=== PATIENT | female | born 1995 | race African-American/Black ===

== ENCOUNTER 2018-11-04 21:25 | Emergency (ER) | payer MEDICAID ==
[~2018-11-04] VITALS: Ht 170.2 cm; Wt 82.0 kg
[~2018-11-04 21:25] MED LIST: BENZ1TAB7 PO; DOCU-138 PO; LEVO500T2 PO; LORA-250 PO; OMEP20CA4 PO; POLY17PO3 PO; QUET200T PO; TEMA15CA5 PO
[2018-11-04 23:39] LABS: BASOPHILS % 0.5 % (0.0-2.0); EOSINOPHILS % 1.4 % (0.0-5.0); HEMATOCRIT. 36.9 % (36.0-48.0); HEMOGLOBIN. 12.4 g/dL (12.0-16.0); LYMPHOCYTES % 34.8 % (20.0-50.0); MEAN CORPUSCULAR HEMOGLOBIN 31.5 pg (28.0-32.0); MEAN CORPUSCULAR VOLUME 93.7 fL (81.0-99.0); MEAN PLATELET VOLUME 8.3 fl (7.4-10.4); MONOCYTES % 14.9 % (2.0-8.0); NEUTROPHILS % 48.4 % (40.0-76.0); PLATELET 169 x1000/uL (130-400); RED BLOOD CELL COUNT 3.94 mill/uL (4.2-5.4); RED CELL DISTRIBUTION WIDTH 13.6 % (11.6-14.6)
[2018-11-04 23:46] LABS: CHLORIDE 107 mEq/L (98-107)
[2018-11-04 23:51] LABS: ETHANOL BLOOD < 10 mg/dL
[2018-11-04 23:53] LABS: HCG SCREEN NEGATIVE
[2018-11-05] MEDS ORDERED: LORAZEPAM 2MG/ML CPJ IM ONE (01:00)
[2018-11-05] MEDS ORDERED: DIPHENHYDRAMINE 50MG/ML VIAL IM ONE (01:00)
[2018-11-05] MEDS ORDERED: HALOPERIDOL LACTATE 5MG/ML VIAL IM ONE (01:00)
[2018-11-05 01:07] LABS: CLARITY URINE CLEAR (CLEAR); COLOR URINE YELLOW (YELLOW); KETONES URINE TRACE (NEGATIVE); LEUKOCYTE ESTERASE URINE 2+ (NEGATIVE); NITRITE URINE NEGATIVE (NEGATIVE); OCCULT BLOOD URINE NEGATIVE (NEGATIVE); PH URINE 6.5 (4.5-8.0); PROTEIN URINE NEGATIVE (NEGATIVE); SPECIFIC GRAVITY URINE 1.023 (1.005-1.030); UROBILINOGEN URINE 0.2 E.U./dL (0.2-1.0)
[2018-11-05 01:34] LABS: *AMPHETAMINES SCREEN URINE NEGATIVE (NEGATIVE); *BARBITURATES SCREEN URINE NEGATIVE (NEGATIVE); *BENZODIAZEPINES SCREEN URINE PRESUMTIVE POSITIVE (NEGATIVE)
[2018-11-05 01:35] LABS: *COCAINE SCREEN URINE NEGATIVE (NEGATIVE); CANNABINOID URINE SCREEN NEGATIVE (NEGATIVE); METHADONE URINE SCREEN NEGATIVE (NEGATIVE); OPIATES URINE SCREEN NEGATIVE (NEGATIVE); PHENCYCLIDINE URINE SCREEN NEGATIVE (NEGATIVE)
[2018-11-05] MEDS ORDERED: DIVALPROEX SODIUM 500MG ER TABLET PO ONE (10:00)
[2018-11-05] MEDS ORDERED: CHLORPROMAZINE HCL 25 MG TABLET PO ONE ×2 (10:00→21:15)
[2018-11-05] MEDS ORDERED: LORAZEPAM 2MG/ML CPJ IM STA (11:19)
[2018-11-05] MEDS ORDERED: OLANZAPINE 10 MG/VIAL IM ONE (11:30)
[2018-11-05] MEDS ORDERED: LORAZEPAM 1MG TABLET PO ONE (19:45)
[2018-11-05] MEDS: NITROFURANTOIN 100MG M/M CAPSULE PO SCH (21:00)
[2018-11-05] MEDS: DIVALPROEX SODIUM 500MG ER TABLET PO SCH (21:15)
[2018-11-06] MEDS: NITROFURANTOIN 100MG M/M CAPSULE PO SCH ×3 (08:24→22:16)
[2018-11-06] MEDS: DIVALPROEX SODIUM 500MG ER TABLET PO SCH ×2 (08:24→22:11)
[2018-11-06] MEDS ORDERED: LORAZEPAM 1MG TABLET PO ONE (17:30)
[2018-11-07] MEDS ORDERED: LORAZEPAM 1MG TABLET PO ONE (08:45)
[2018-11-07] MEDS ORDERED: DIPHENHYDRAMINE 25MG CAPSULE PO ONE (10:00)
[2018-11-07] MEDS ORDERED: LORAZEPAM 2MG/ML CPJ IM ONE (11:00)
[2018-11-07] MEDS ORDERED: HALOPERIDOL LACTATE 5MG/ML VIAL IM ONE (11:00)
[2018-11-07] MEDS ORDERED: DIPHENHYDRAMINE 50MG/ML VIAL IM ONE (11:00)
[2018-11-07] MEDS ORDERED: DIVALPROEX SODIUM 500MG ER TABLET PO ONE (14:00)
[2018-11-07 14:10] VITALS: BP 109/74
[2018-11-12] MEDS ORDERED: LOXA25CA MT (16:16)
[2018-11-12] MEDS ORDERED: TH200 MT (16:39)
[2018-11-12] MEDS ORDERED: DIVA-18 MT (16:41)
== END 2018-11-07 14:44 | disposition home or self-care (01) ==
LOC: ER 21:25
DX: R45.6 Violent behavior (principal); F84.0 Autistic disorder; Z79.899 Other long term (current) drug therapy
CPT/HCPCS: 36415; 80053; 80305; 80307; 80320; 80329; 81003; 82962; 84443; 84703; 85025; 96372; 99284; J1200; J1630; J2060; J3490; Q0161; Q0163; G0480

== ENCOUNTER 2023-04-28 20:27 | Emergency (ER) | payer MEDICAID, OTHER ==
[~2023-04-28] VITALS: Ht 157.5 cm; Wt 97.0 kg
[~2023-04-28 20:27] MED LIST changes: -BENZ1TAB7 PO; +DIVA-18 MT; +LOXA25CA MT; -QUET200T PO; -TEMA15CA5 PO; +TH200 MT
[2023-04-28 20:46] VITALS: BP 110/70; PULSE 116; RESP 12; O2SAT 95
[2023-04-28] MEDS: OLANZAPINE 10 MG/VIAL IM STA (21:03)
[2023-04-28] MEDS: HALOPERIDOL LACTATE 5MG/ML VIAL IM ONE (22:15)
[2023-04-28] MEDS: LORAZEPAM 2MG/ML INJ IM ONE (22:26)
== END 2023-04-29 01:33 | disposition left against medical advice (07) ==
LOC: ER 20:27
DX: F23 Brief psychotic disorder (principal); F84.0 Autistic disorder
CPT/HCPCS: 96372; 99283; J3490; J1630; J2060; Z7610 ×2

== ENCOUNTER 2024-01-16 01:59 | Emergency (ER) | payer MEDICAID ==
[~2024-01-16] VITALS: Ht 170.2 cm; Wt 127.0 kg
[2024-01-16 01:04] VITALS: O2SAT 100
[2024-01-16 06:33] VITALS: BP 110/60; PULSE 99; RESP 18; TEMP 36.66960; O2SAT 100
== END 2024-01-16 06:45 | disposition home or self-care (01) ==
LOC: ER 06:45
DX: F84.0 Autistic disorder (principal); F20.9 Schizophrenia, unspecified; Z79.899 Other long term (current) drug therapy
CPT/HCPCS: 99284; Z7610 ×2

== ENCOUNTER 2024-01-30 00:23 | Emergency (ER) | payer MEDICAID ==
[2024-01-29] MEDS: LACOSAMIDE 100MG/10ML ORAL SOLN GT SCH (21:45)
[~2024-01-30] VITALS: Ht 167.6 cm; Wt 106.0 kg
[2024-01-30 00:58] VITALS: O2SAT 98
[2024-01-30 01:23] LABS: BASOPHILS % 0.5 % (0.0-2.0); EOSINOPHILS % 1.5 % (0.0-5.0); HEMATOCRIT. 43.1 % (36.0-48.0); HEMOGLOBIN. 14.1 g/dL (12.0-16.0); LYMPHOCYTES % 24.1 % (20.0-50.0); MEAN CORPUSCULAR HEMOGLOBIN 30.1 pg (28.0-32.0); MEAN CORPUSCULAR HGB CONC 32.8 g/dL (31.0-37.0); MEAN CORPUSCULAR VOLUME 91.7 fL (81.0-99.0); MEAN PLATELET VOLUME 8.6 fl (7.4-10.4); MONOCYTES % 9.3 % (2.0-8.0); NEUTROPHILS % 64.6 % (40.0-76.0); PLATELET 282 x1000/uL (130-400); RED CELL DISTRIBUTION WIDTH 14.8 % (11.6-14.6); WHITE BLOOD COUNT 12.6 x1000/uL (4.5-11.0)
[2024-01-30 01:29] LABS: CHLORIDE 105 mEq/L (98-107); POTASSIUM 4.2 mEq/L (3.5-5.1); SODIUM 139 mEq/L (136-145)
[2024-01-30 01:30] LABS: CALCIUM 9.7 mg/dL (8.7-10.4); CARBON DIOXIDE 25 mEq/L (21-32)
[2024-01-30 01:35] LABS: CREATININE 0.7 mg/dL (0.6-1.0); GLUCOSE 102 mg/dL (70-105); UREA NITROGEN BLOOD 5 mg/dL (9-23)
[2024-01-30] MEDS: DIPHENHYDRAMINE 50MG/ML VIAL IM STA (01:35)
[2024-01-30] MEDS: LORAZEPAM 2MG/ML INJ IV STA (01:35)
[2024-01-30] MEDS: HALOPERIDOL LACTATE 5MG/ML VIAL IM STA (01:35)
[2024-01-30 01:37] LABS: ACETAMINOPHEN < 2 ug/mL (10-30)
[2024-01-30 01:51] LABS: ETHANOL BLOOD < 10 mg/dL (<10)
[2024-01-30] MEDS: PANTOPRAZOLE 40MG DR TABLET PO ONE (13:23)
[2024-01-30] MEDS: LEVOTHYROXINE SODIUM 75MCG TABLET PO NR (13:23)
[2024-01-30] MEDS: DIVALPROEX SODIUM 500MG DR TABLET PO NR (13:23)
[2024-01-30] MEDS: LACOSAMIDE 100MG/10ML ORAL SOLN GT NR (13:24)
[2024-01-30] MEDS: DIVALPROEX SODIUM 500MG DR TABLET PO ONE (13:35)
[2024-01-30] MEDS: LEVOTHYROXINE SODIUM 75MCG TABLET PO ONE (13:35)
[2024-01-30] MEDS: LACOSAMIDE 100MG/10ML ORAL SOLN GT ONE (13:35)
[2024-01-30] MEDS: HALOPERIDOL LACTATE 5MG/ML VIAL IM ONE (17:11)
[2024-01-30] MEDS: LORAZEPAM 1MG TABLET PO ONE (17:11)
[2024-01-31] MEDS: ZIPRASIDONE MESYLATE 20MG/VIAL IM ONE (01:15)
[2024-01-31] MEDS: LORAZEPAM 2MG/ML INJ IM ONE (03:45)
[2024-01-31] MEDS: OLANZAPINE 10 MG/VIAL IM ONE (05:11)
[2024-01-31] MEDS: CHLORPROMAZINE HCL 25 MG TABLET PO ONE (08:59)
[2024-01-31 13:38] VITALS: BP 136/88; PULSE 90; RESP 22; TEMP 36.89184; O2SAT 99
== END 2024-01-31 13:40 | disposition home or self-care (01) ==
LOC: ER 00:23
DX: F84.0 Autistic disorder (principal); G40.909 Epilepsy, unspecified, not intractable, without status epilepticus; Z79.899 Other long term (current) drug therapy
CPT/HCPCS: 80048; 80307; 80329; 80320; 85025; 36415; 80339 ×2; 96372 ×2; 96374; 99285; J1200; J1630; J2060 ×2; Z7610 ×4; Q0161; J3490; J3486; G0480

== ENCOUNTER 2024-07-09 02:37 | Emergency (ER) | payer MEDICAID ==
[~2024-07-09] VITALS: Ht 160 cm; Wt 91.0 kg
[2024-07-09 02:49] VITALS: O2SAT 98
[2024-07-09 03:12] VITALS: BP 141/79; PULSE 79; RESP 20; TEMP 36.4; O2SAT 99
== END 2024-07-09 03:16 | disposition home or self-care (01) ==
LOC: ER 02:37
DX: R03.0 Elevated blood-pressure reading, without diagnosis of hypertension (principal); F84.0 Autistic disorder; Z79.899 Other long term (current) drug therapy
CPT/HCPCS: 99283

== ENCOUNTER 2024-09-09 21:24 | Emergency (ER) | payer MEDICAID ==
[~2024-09-09] VITALS: Ht 167.6 cm; Wt 77.0 kg
[2024-09-10] MEDS: OLANZAPINE 10 MG/VIAL IM ONE (00:25)
[2024-09-10] MEDS ORDERED: LORAZEPAM 2MG/ML INJ IM ONE (01:30)
[2024-09-10] MEDS: HALOPERIDOL LACTATE 5MG/ML VIAL IM ONE (01:44)
[2024-09-10] MEDS: DIPHENHYDRAMINE 50MG/ML VIAL IM ONE (01:44)
[2024-09-10] MEDS: LORAZEPAM 2MG/ML UD SYRINGE IM SCH (01:45)
[2024-09-10 03:30] VITALS: O2SAT 100
[2024-09-10] MEDS: KETAMINE HCL 50 MG/ML 10ML IM ONE (04:37)
[2024-09-10 05:03] VITALS: TEMP 36.9
[2024-09-10] MEDS ORDERED: DIPHENHYDRAMINE 50MG/ML VIAL IM PRN (10:00)
[2024-09-10] MEDS: CHLORPROMAZINE HCL 25MG/1ML INJ IM PRN (11:51)
[2024-09-10 14:11] VITALS: BP 116/90; PULSE 89; RESP 18; O2SAT 98
== END 2024-09-10 14:48 | disposition home or self-care (01) ==
LOC: EDBD 21:57 → ER 21:57
DX: R45.1 Restlessness and agitation (principal); F84.0 Autistic disorder; Z79.899 Other long term (current) drug therapy
CPT/HCPCS: 99291; 96372; J3490 ×2; J3230; J1200; J1630; J2060

== ENCOUNTER 2024-10-22 08:34 | Emergency (ER) | payer MEDICAID ==
[~2024-10-22] VITALS: Ht 165.1 cm; Wt 70.0 kg
[2024-10-22] MEDS: LORAZEPAM 2MG/ML UD SYRINGE IM NR (10:34)
[2024-10-22] MEDS: HALOPERIDOL LACTATE 5MG/ML VIAL IM ONE ×2 (10:34→17:09)
[2024-10-22] MEDS: DIPHENHYDRAMINE 50MG/ML VIAL IM ONE ×2 (10:34→17:10)
[2024-10-22 12:40] LABS: BASOPHILS % 0.5 % (0.0-2.0); EOSINOPHILS % 0.9 % (0.0-5.0); HEMATOCRIT. 38.3 % (36.0-48.0); HEMOGLOBIN. 12.9 g/dL (12.0-16.0); LYMPHOCYTES % 25.2 % (20.0-50.0); MEAN PLATELET VOLUME 9.2 fl (7.4-10.4); MONOCYTES % 7.7 % (2.0-8.0); NEUTROPHILS % 65.7 % (40.0-76.0); PLATELET 203 x1000/uL (130-400); RED BLOOD CELL COUNT 4.12 mill/uL (4.2-5.4); RED CELL DISTRIBUTION WIDTH 13.7 % (11.6-14.6)
[2024-10-22 12:48] LABS: CREATININE 0.8 mg/dL (0.6-1.0); UREA NITROGEN BLOOD 13 mg/dL (9-23)
[2024-10-22 12:49] LABS: ETHANOL BLOOD < 10 mg/dL (<10)
[2024-10-22 17:10] VITALS: O2SAT 98
[2024-10-22] MEDS: MIDAZOLAM HCL 2 MG/2 ML VIAL IM ONE (17:10)
[2024-10-22] MEDS: OLANZAPINE 10 MG/VIAL IM ONE (20:46)
[2024-10-23] MEDS: ZIPRASIDONE MESYLATE 20MG/VIAL IM ONE (02:30)
[2024-10-23 06:00] VITALS: BP 98/55; PULSE 72; RESP 16; TEMP 36.7; O2SAT 99
== END 2024-10-23 09:37 | disposition home or self-care (01) ==
LOC: ER 08:34
DX: F23 Brief psychotic disorder (principal); F84.0 Autistic disorder; R56.9 Unspecified convulsions; Z79.899 Other long term (current) drug therapy
CPT/HCPCS: 80048; 80307; 80329; 80320; 85025; 36415; 96372 ×2; 99285; J3490; J1200; J1630; J2060; J2250; Z7610 ×4; J3486; G0480

== ENCOUNTER 2024-11-09 20:59 | Emergency (ER) | payer MEDICAID ==
[~2024-11-09] VITALS: Ht 157.5 cm; Wt 80.0 kg
[2024-11-09] MEDS ORDERED: MIDAZOLAM HCL 5 MG/ML VIAL IM ONE (21:45)
[2024-11-09] MEDS: DIPHENHYDRAMINE 50MG/ML VIAL IM ONE (22:01)
[2024-11-09] MEDS: LORAZEPAM 2MG/ML UD SYRINGE IM SCH (22:01)
[2024-11-09] MEDS: HALOPERIDOL LACTATE 5MG/ML VIAL IM ONE (22:01)
[2024-11-09] MEDS ORDERED: MIDAZOLAM HCL 2 MG/2 ML VIAL IM ONE (22:15)
[2024-11-09] MEDS: OLANZAPINE 10 MG/VIAL IM ONE (22:47)
[2024-11-09] MEDS: MIDAZOLAM HCL 2 MG/2 ML VIAL IM ONE (22:51)
[2024-11-09 23:42] LABS: BASOPHILS % 0.6 % (0.0-2.0); EOSINOPHILS % 1.1 % (0.0-5.0); HEMATOCRIT. 37.8 % (36.0-48.0); HEMOGLOBIN. 12.5 g/dL (12.0-16.0); LYMPHOCYTES % 23.9 % (20.0-50.0); MEAN PLATELET VOLUME 9.6 fl (7.4-10.4); MONOCYTES % 7.8 % (2.0-8.0); NEUTROPHILS % 66.6 % (40.0-76.0); PLATELET 187 x1000/uL (130-400); RED BLOOD CELL COUNT 4.03 mill/uL (4.2-5.4); RED CELL DISTRIBUTION WIDTH 14.2 % (11.6-14.6)
[2024-11-09] MEDS: MIDAZOLAM HCL 2 MG/2 ML VIAL IV ONE (23:45)
[2024-11-09 23:51] LABS: CREATININE 0.7 mg/dL (0.6-1.0); UREA NITROGEN BLOOD 14 mg/dL (9-23)
[2024-11-09 23:52] LABS: ETHANOL BLOOD < 10 mg/dL (<10)
[2024-11-09 23:53] LABS: ASPARTATE AMINOTRANSFERASE 22 IU/L (<34); BILIRUBIN DIRECT < 0.1 mg/dL (<=3.0)
[2024-11-09 23:54] LABS: BILIRUBIN TOTAL 0.2 mg/dL (0.1-1.0); PROTEIN TOTAL 6.1 g/dL (6.0-8.3)
[2024-11-10 00:08] VITALS: O2SAT 98
[2024-11-10] MEDS: OLANZAPINE 10 MG/VIAL IM ONE (06:04)
[2024-11-10] MEDS: LORAZEPAM 2MG/ML UD SYRINGE IM NR (06:05)
[2024-11-10 11:40] VITALS: BP 101/64; PULSE 64; RESP 18; TEMP 36.9; O2SAT 100
== END 2024-11-10 11:41 | disposition home or self-care (01) ==
LOC: ER 20:59
DX: R46.1 Bizarre personal appearance (principal); Z78.1 Physical restraint status; E03.9 Hypothyroidism, unspecified; Z79.899 Other long term (current) drug therapy; W22.01XA Walked into wall, initial encounter; Y93.89 Activity, other specified; Y92.89 Other specified places as the place of occurrence of the external cause; Y99.8 Other external cause status
CPT/HCPCS: 80076; 80048; 80320; 83735; 85025; 36415; 70450; 96372 ×2; 99291; J3490 ×2; J1200; J1630; J2060 ×2; J2250; G0480

== ENCOUNTER 2024-11-22 09:29 | Emergency (ER) | payer MEDICAID ==
[~2024-11-22] VITALS: Ht 167.6 cm; Wt 91.0 kg
[2024-11-22 09:30] VITALS: BP 0/0; PULSE 100; RESP 18; O2SAT 0
[2024-11-22] MEDS ORDERED: LORAZEPAM 1MG TABLET PO ONE (10:45)
== END 2024-11-22 11:57 | disposition left against medical advice (07) ==
LOC: ER 09:29
DX: R45.1 Restlessness and agitation (principal); E03.9 Hypothyroidism, unspecified; F20.9 Schizophrenia, unspecified; R56.9 Unspecified convulsions; Z79.899 Other long term (current) drug therapy
CPT/HCPCS: 99283